=== PATIENT | male | born 1980 | race Caucasian/White ===

== ENCOUNTER 2017-08-30 04:04 | Emergency (ER) | payer SELFPAY ==
[2017-08-30] MEDS: NS 1,000 ML IV (04:15)
[2017-08-30 04:18] LABS: HEMATOCRIT 45.8 % (42.0-52.0); HEMOGLOBIN 16.1 g/dl (14.0-18.0); MEAN CORPUSCULAR HEMOGLOBIN 30.6 pg (27.0-33.0); MEAN CORPUSCULAR HGB CONC 35.2 g/dl (32.0-36.5); MEAN CORPUSCULAR VOLUME 86.9 fl (80.0-96.0); PLATELET COUNT, AUTOMATED 220 10^3/uL (150-450); RED BLOOD COUNT 5.27 10^6/uL (4.30-6.10); RED CELL DISTRIBUTION WIDTH 13.6 % (11.5-14.5); WHITE BLOOD COUNT 9.5 10^3/uL (4.0-10.0)
[2017-08-30] MEDS ORDERED: PROPOFOL 1,000 MG/100 ML VIAL As Ordered (04:19)
[2017-08-30] MEDS ORDERED: ETOMIDATE INJ 20MG/10ML VIAL As Ordered (04:21)
[2017-08-30] MEDS ORDERED: SUCCINYLCHOLINE INJ 200 MG/10 ML VIAL (J0330) As Ordered (04:22)
[2017-08-30 04:25] LABS: ADD MANUAL DIFFER YES; DIFF SLIDE NUMBER 84; POSITIVE DIFF POS FLAG
[2017-08-30] MEDS: PROPOFOL 1,000 MG in APPROPRIATE DILUENT 1 EA IV ×4 (04:30→06:10)
[2017-08-30 04:41] LABS: INR 0.94; PARTIAL THROMBOPLASTIN TIME 23.9 SECONDS (26.8-37.9); PROTHROMBIN TIME 12.6 SECONDS (12.4-14.5)
[2017-08-30 04:44] LABS: ALBUMIN 4.2 GM/DL (3.2-5.2); ALKALINE PHOSPHATASE 69 U/L (45-117); ALT/SGPT 52 U/L (12-78); AMYLASE 49 U/L (25-115); ANION GAP 14 MEQ/L (8-16); AST/SGOT 35 U/L (7-37); BILIRUBIN,DIRECT < 0.1 MG/DL (0.0-0.2); BILIRUBIN,TOTAL 0.3 MG/DL (0.2-1.0); BLOOD UREA NITROGEN 25 MG/DL (7-18); CALCIUM LEVEL 8.3 MG/DL (8.5-10.1); CARBON DIOXIDE LEVEL 22 MEQ/L (21-32); CHLORIDE LEVEL 109 MEQ/L (98-107); CPK CREATINE PHOSPHOKINASE 599 U/L (39-308); CREATININE FOR GFR 1.03 MG/DL (0.70-1.30); ETHYL ALCOHOL (ETHANOL) 0.266 % (0.000-0.010); GLOMERULAR FILTRATION RATE > 60.0 (>60); GLUCOSE, FASTING 116 MG/DL (70-100); LIPASE 170 U/L (73-393); SODIUM LEVEL 145 MEQ/L (136-145); TOTAL PROTEIN 7.2 GM/DL (6.4-8.2); TROPONIN I < 0.02 NG/ML (< 0.10)
[2017-08-30 04:45] LABS: CK-MB VALUE MASS 4.6 NG/ML (0.0-3.6); MB/CK RELATIVE INDEX 0.76 (< OR =4)
[2017-08-30] MEDS: TETANUS/DIPHTHERIA TOX ADSORB ADULT 0.5ML SYR/VIAL (90714) IM (05:13)
[2017-08-30 05:25] LABS: ATYPICAL LYMPH 11 % (0-5); EOSINOPHILS 3 % (0-5); LYMPHOCYTES 38 % (16-52); MONOCYTES 4 % (0-8); NEUTROPHILS 44 % (35-75)
[2017-08-30 05:26] LABS: PLATELET ESTIMATE NORMAL (NORMAL)
[2017-08-30] MEDS: CEFAZOLIN SOD 1 GM in APPROPRIATE DILUENT 1 EA IV (05:30)
[2017-08-30 05:32] LABS: AMPHETAMINES LEVEL URINE NEGATIVE (NEGATIVE); BARBITURATES URINE NEGATIVE (NEGATIVE); BENZODIAZEPINES URINE NEGATIVE (NEGATIVE); CANNABINOIDS URINE NEGATIVE (NEGATIVE); COCAINE METABOLITE URINE NEGATIVE (NEGATIVE); METHADONE URINE NEGATIVE (NEGATIVE); OPIATES URINE NEGATIVE (NEGATIVE); PHENCYCLIDINE URINE NEGATIVE (NEGATIVE)
[2017-08-30 05:36] LABS: LACTIC ACID SEPSIS PROTOCOL 3.5 MMOL/L (0.4-2.0)
== END 2017-08-30 06:50 | disposition short-term general hospital (02) ==
LOC: M ED 04:04
DX: S02.91XA Unspecified fracture of skull, initial encounter for closed fracture (principal); V58.4XXA Person boarding or alighting a pick-up truck or van injured in noncollision transport accident, initial encounter; Y92.410 Unspecified street and highway as the place of occurrence of the external cause
CPT/HCPCS: 90714